=== PATIENT | female | born 1940 | race Caucasian/White ===

== ENCOUNTER 2025-02-12 09:50 | Day surgery (SDC) | payer MEDICARE, SELFPAY ==
[2025-02-12] VITALS (9 sets, daily range): BP systolic 153–176; BP diastolic 67–95; PULSE 73–93; RESP 16–17; TEMP 36.6–36.9; O2SAT 92–99; BMI 24.0
--- NOTE | 2025-02-12 10:16 | NM_ITS ---
EXAM: Nuclear medicine lymphoscintigraphy Lymphoseek left lower extremity examination. CLINICAL HISTORY: Immediate preoperative study. COMPARISON: None. TECHNIQUE: 500 uCi Lymphoseek was injected intradermally in the medial left leg. Imaging through 75 minutes of the left lower extremity was then performed. NM/LYMPH NODE IMAGING IMPRESSION: Lymphoscintigraphy of the left lower extremity following left leg medial inject ion Lymphoseek. At 75 minute images, 2 and possibly 3 lymph nodes are seen in the left groin re gion, the central one being the most intense. Reading Location: [place] [address]
[2025-02-12] MEDS: Lactated Ringers 1,000 ML 15 ML IV (10:30)
--- NOTE | 2025-02-12 10:58 | PCM.HP.STD ---
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 It is Breslow depth is 2.5 mm, ulceration was present (at least 4 mm), Nathan level IV, at least 2 mitoses per square millimeter, no lymphatic or vascular invasion identified, and was therefore classified as a T3b. The full-thickness biopsy was obtained by Jovan Briceño and was 18 x 12 x 5 mm deep in an attempt to remove the lesion completely. Peripheral margins were seen as positive for melanoma in situ (but negative for invasive melanoma) on the pathology specimen. Patient doing well overall today in clinic. She reports no new onset headaches. She does not think that she has any lumps or bumps in her groin or behind her knee. Patient reports that she has a challenging situation at home as her has severe dementia and she is the main caregiver. She has some friend support who can assist her during this time of need, however she is not interested in going to [facility], or [place] to see a melanoma specialist (I offered her this opportunity and she deferred). She would like to stay in [place] for her care. Of note patient has a history of 2 melanomas on the face and the leg which were excised 15 years ago. She did not require any chemotherapy after those wide local excisions. She has never had a sentinel lymph node biopsy. Patient is not a smoker. She does not have a personal or family history of bleeding or clotting problems. Current Encounter (DATE OF SURGERY H&P UPDATE): I saw and examined the patient this morning in pre-operative holding. We discussed risks and benefits of today's surgery and they would like to proceed. NO CHANGE in health history since last seen and evaluated. Ready to proceed with surgery. [facility] Medical History (Updated 02/10/25 @ 13:46 by Cheryl Aburto) Wears partial dentures History of hypothyroidism Thyroid disease Low iron Excessive bleeding Restless legs History of diverticulitis Heartburn Non-smoker Anxiety Skin cancer Murmur, cardiac Hypertension Cancer History of bleeding disorder Home Medications ?Medication ?Instructions ?Recorded ?Last Taken ?Type garlic 100 mg tablet (Odor Free 100 mg PO DAILY 02/17/17 02/11/25 History Garlic) hydrochlorothiazide 25 mg tablet 25 mg PO DAILY 02/17/17 02/11/25 History multivitamin (Daily Multiple 1 ea PO DAILY 02/17/17 02/11/25 History tablet) omega-3 fatty acids-fish oil 340 3 ea PO DAILY 02/17/17 02/11/25 History mg-1,000 mg capsule (Fish Oil) docusate sodium 100 mg capsule 100 mg PO BID PRN PRN Constipation 02/23/17 Unknown Rx (DOK) ##60 levothyroxine 75 mcg tablet 75 mcg PO QDAY 02/06/25 02/12/25 History losartan 25 mg tablet 25 mg PO QDAY 02/06/25 02/12/25 History acetaminophen 325 mg tablet 650 mg PO Q4H PRN pain (scale 02/12/25 Unknown History (Aminofen) score 4-6) oxycodone 5 mg tablet 5 mg PO BID PRN pain 5 days #10 02/12/25 Unknown Rx tabs Allergy/AdvReac Type Severity Reaction Status Date / Time No Known Allergies Allergy Verified 02/12/25 10:25 Family History Other Anxiety Bleeding disorder High cholesterol History of anesthesia problem Hypertension Melanoma Skin cancer Surgical History (Updated 02/10/25 @ 13:46 by Cheryl Aburto) History of bladder repair surgery History of bladder surgery H/O: hysterectomy Social History Smoking Status: Never smoker alcohol intake: never substance use type: does not use additional social history: pt denies vaping, denies edibles, denies aspirin and ibuprofen use, denies marijuana use. Has a history of bleeding disorder Vital Signs Vital Signs Vital Signs: 02/12/25 10:26 02/12/25 10:26 Temperature 97.8 F Temperature Source Temporal Pulse Rate 74 Respiratory Rate 17 Respiratory Pattern Normal Blood Pressure 176/95 H Blood Pressure Mean 122 Blood Pressure Source Monitor Blood Pressure Position Semi-Fowlers Blood Pressure Location Left Arm Pulse Ox 97 Oxygen Delivery Method Room Air Weight Weight: 123 lb 0.287 oz Body Mass Index (BMI) 24.0 Physical Exam Narrative Left medial leg scar that is 3 cm long. No apparent residual melanocytes seen along the scar line. No popliteal lymphadenopathy on my exam. No left inguinal lymphadenopathy on my exam. Assessment & Plan Assessment/Plan (1) Melanoma of lower leg: PLAN: Plan Patient with a thick melanoma. I spoke with Dr. Bunn from hematology/oncology. I am referring her to him for assessment for targeted immunotherapy/chemotherapy. We discussed her case and we are recommending a sentinel lymph node biopsy with wide local excision (2 cm margins). I offered the patient a referral to a melanoma specialist (surgical oncologist), but she declined at this time as she would like to have this performed at [facility] as this is the closest hospital to her family in [place]. I talked to the patient extensively about the risks and benefits of a sentinel lymph node biopsy. We talked about the risks of damage to surrounding structures including nerves, but also risks of lymphedema postoperatively (could develop severe lymphedema in the lower extremity despite this being a lymph node sampling procedure and not a full lymph node dissection). I talked her about the benefits of the biopsy which is to give the oncologist more information about the staging of her disease, which may help with regards to prescribing immunotherapy or chemotherapy. After our discussion she elected to proceed with sentinel lymph node biopsy. She would like to undergo wide local excision of the tumor as well as recommended (2 cm margins were discussed). She understands that a temporary dressing (cadaver skin) will be applied afterwards with the bolster until we have definitive final surgical margins. Subsequently we will perform a reconstruction (likely skin graft). I talked to the patient extensively about the risks of surgery, including bleeding, infection, lymphatic damage including lymphedema, damage to surrounding structures such as nerves (numbness postoperatively), poor scaring, surgical site dehiscence and wound formation, need for wound care, need for repeat operations, failure to obtain the desired result, DVT/PE, and the risks of anesthesia including , including stroke (from low blood pressure/ischemia or clot). The benefits and alternatives of this surgery were also discussed. All of their questions were answered, and they agreed to proceed with surgery. CPT codes for insurance prior authorization are as follows: 67422, [id number], [id number], [id number] INTERVAL H&P PLAN, DATE OF SURGERY: We will proceed with surgery today. I reiterated the above noted risks and plans. I marked the left leg melanoma and patient/family in agreement with the site marking. They elected to proceed.
--- NOTE | 2025-02-12 11:40 | PRE.ANES_ITS ---
ASA Classification* ASA Classification ASA Classification: 2 Assessment & Plan Anesthesia* Anesthesia Assessment Anesthesia Assessment: Discussed sedation and/or anesthesia options, risks, benefits, and alternatives with patient/parents/legal guardian/POA. Questions invited. The patient/parents/legal guardian/POA seems to understand and agrees to proceed with anesthesia plan. Reviewed the physical assessment, medical history, allergy history and patient home medications list prior to surgery/procedure/anesthetic and documented any changes. Performed airway and anesthesia risk assessments. Anesthesia Type Anesthesia Type: General Anesthesia Focused Assessment* Temperature: 97.8 F Pulse Rate: 74 Blood Pressure: 176/95 Respiratory Rate: 17 Pulse Ox: 97 Airway Assessment Mouth opens: >3 cm Mallampati Score: II Focused Labs Anesthesia Preop lab: CBC WBC 10.5 K/mm3 (4.4-11.0) 02/24/17 06:20 02/24/17 RBC 3.23 M/mm3 (4.2-5.4) L 02/24/17 06:20 02/24/17 Hgb 10.3 g/dl (12.0-15.0) L 02/24/17 06:20 7 Hct 30.7 % (37-47) L 02/24/17 06:20 02/24/17 Plt Count 197 K/mm3 (150-450) 02/24/17 06:20 02/24/17 CHEMISTRY Potassium 3.1 mmol/L (3.5-5.1) L 02/20/17 16:20 02/20/17 Sodium 136 mmol/L (136-145) 02/20/17 16:20 02/20/17 BUN 8 mg/dL (7-18) 02/20/17 16:20 02/20/17 Creatinine 0.75 mg/dL (0.55-1.02) 02/20/17 16:20 02/20/17 Glucose 104 mg/dL (70-110) 02/20/17 16:20 02/20/17 COAG PT 12.5 SECONDS (11.7-14.9) 02/20/17 16:20 Pre-Assessment Diagnosis/Proposed Procedure Planned Operative Procedure(s): WIDE LOCAL EXCISION OF MELANOMA, LEFT LEG, Anesthesia History 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 When Was Last Pacemaker Check QUESTION #4 FULL TEXT: You/Your Family Experience fever (hyperthermia) with Anesthesia Last Oral Intake Last Oral intake: Last Oral Intake NPO since 07:30 02/12/25 10:26 Meds taken in AM with sips of Yes 02/12/25 10:26 water? Meds patient instructed to take am of surgery PONV PONV - architectural modeler: PONV - architectural modeler Female Yes 02/10/25 13:35 HX of Motion Sickness No 02/10/25 13:35 HX of N/V After Surgery No 02/10/25 13:35 Non-Smoker Yes 02/10/25 13:35 Duration of Surgery greater Yes 02/10/25 13:35 than 60 minutes Number of Risk Factors 3 02/10/25 13:35 PONV Score Moderate Risk 02/10/25 13:35 Height & Weight Height & Weight: Anesthesia: Height & Weight Height 5 ft 02/12/25 10:26 Weight: 55.8 kg 02/12/25 10:26 Body Mass Index (BMI) 24.0 02/12/25 10:26 Respiratory Assessment Respiratory Assessment - architectural modeler: Respiratory Tract Infection Hx - architectural modeler Hx Respiratory Tract Infection No 02/10/25 13:35 STOP Sleep Apnea STOP Sleep Apnea - architectural modeler: STOP Sleep Apnea - architectural modeler Hx Hypertension Yes: UNCONTROLLED ESPECIALLY 02/10/25 13:[address] CLOUD Hx Sleep Apnea No 02/10/25 13:35 CPAP BIPAP Do you snore loudly (louder No 02/10/25 13:35 than talking or can be heard Do you often feel tired/ No 02/10/25 13:35 fatigued/ sleepy during daytime? Has anyone observed you stop No 02/10/25 13:35 breathing during sleep? STOP Results Negative 02/10/25 13:35 QUESTION #5 FULL TEXT : Do you snore loudly (louder than talking or can be heard through closed doors)? 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 Specify any problems Hx of Preganancy in last 3 N/A 02/10/25 13:35 Months Nurse Filling Out Transfusion NBUCHER 02/10/25 13:35 & Questions: Date: 02/10/25 02/10/25 13:35 Time: 13:39 02/10/25 13:35 Patient unable to answer at this time (ie. confused, unrespo /Reproduction History /Reproductive History - architectural modeler: /Reproductive Hx- architectural modeler Hx Now No 02/10/25 13:35 Gestational Age (in weeks): EDC: Hx Hx Para Hx Section SAB Active Medications Active Medications: Current Medications Generic Name Dose Route Start Last Admin Trade Name Freq PRN Reason Stop Dose Admin Lactated Ringer's 1,000 mls @ 15 mls/hr 02/12/25 10:15 02/12/25 10:30 IV 15 mls/hr .Q48H JAREN Administration PFSH Medical History Wears partial dentures History of hypothyroidism Thyroid disease Low iron Excessive bleeding Restless legs History of diverticulitis Heartburn Non-smoker Anxiety Skin cancer Murmur, cardiac Hypertension Cancer History of bleeding disorder Home Medications ?Medication ?Instructions ?Recorded ?Last Taken ?Type garlic 100 mg tablet (Odor Free 100 mg PO DAILY 02/11/25 History Garlic) hydrochlorothiazide 25 mg tablet 25 mg PO DAILY 02/11/25 History multivitamin (Daily Multiple 1 ea PO DAILY 02/17/17 History tablet) omega-3 fatty acids-fish oil 340 3 ea PO DAILY 7 02/11/25 History mg-1,000 mg capsule (Fish Oil) docusate sodium 100 mg capsule 100 mg PO BID PRN PRN C onstipation 02/23/17 Unknown Rx (DOK) ##60 levothyroxine 75 mcg tablet 75 mcg PO QDAY 02/06/25 History losartan 25 mg tablet 25 mg PO QDAY 02/06/2502/12 History acetaminophen 325 mg tablet 650 mg PO Q4H PRN pain (sc brittany 02/12/25 Unknown History (Aminofen) score 4-6) oxycodone 5 mg tablet 5 mg PO BID PRN pain 5 days #10 02/12/25 Unknown Rx tabs Allergy/AdvReac Type Severity Reaction Status Date / Time No Known Allergies Allergy Verified 02/12/25 10:25 Family History Other Anxiety Bleeding disorder High cholesterol History of anesthesia problem Hypertension Melanoma Skin cancer Surgical History History of bladder repair surgery History of bladder surgery H/O: hysterectomy Social History Smoking Status: Never smoker alcohol intake: never substance use type: does not use additional social history: pt denies vaping, denies edibles, denies aspirin and ibuprofen use, denies marijuana use. Has a history of bleeding disorder Review of Systems (Anesthesia) ROS Narrative System reviewed and no additional complaints, except as documented.
--- NOTE | 2025-02-12 14:00 | LYMN_PTH ---
PATIENT: TIERA CHING LOC: [facility] [place][id number] AGE/SX: 84/F ROOM: RE02/12/[address]: Dr. Raj Aguilar MD : 1940 BED: DIS: 02/12/2025 SPEC #: [id number] RECD: 02/12/25 17:54 STATUS: CARLA RERamy #: [id number] MT: 02/12/25 14:[address]: Raj Aguilar DEPT: SURGICAL PATHOLOGY RECD BY: Juliano Mathews ENTERED: 02/13/25 09:08 SP TYPE: LYMPH NODE OTHR DR: Dr. Raj Edwards MD Tissues: A - LYMPH NODE BIOPSY B - Skin of leg, NOS Procedures: Immunohistochemical Stains Surgery Specimen Level IV Surgery Specimen Level V IHC Stain ADDITIONAL HEADER OPERATION: Wide local excision left leg melanoma with sentinel lymph node PRE-OP DIAGNOSIS: Melanoma of lower leg TISSUE SUBMITTED: A- Left groin sentinel lymph node, B- Wide local excision melanoma left lower leg *short stitch- proximal, long stitch- posterior* MICROSCOPIC DIAGNOSIS A. Left groin, sentinel lymph node, biopsy: * Negative for metastasis (0/1). * IHC for melanoma cocktail (HMB45+Tyrosinase+[place]-1) was utilized in the assessment. B. Skin, left lower leg, melanoma, wide local excision: * Residual lentigo maligna, surgical margins free - see note and Comment. * Small benign intradermal nevus (incidental). * Scar and associated reactive changes consistent with a previous surgical procedure. * Note: IHC for Melan-A (B9, B10) supports the histologic impression. COMMENT A preliminary diagnosis was discussed with Dr Aguilar on 02/17/25. The margin status was reported to Dr Aguilar at 8:30 AM on 02/19/25. Selected slides/images were reviewed in intradepartmental consultation by Dr Ramila Smith (dermatopathology division, [facility]). MICROSCOPIC DESCRIPTION Slides are reviewed. All controls show appropriate reactivity (HMB-45, Tyrosinase, [place]-1 performed at [facility]). All immunohistochemistry, in situ hybridization, and histochemical tests were developed by and are performed at the [facility], [address] [place] [address], [address], [place] [address]. All Immunofluorescent (IF) ?tests were developed by and are performed at the [facility], [address] [place] [address], [place], [place] ?[address]. All tests reported here, except those addressing HER2 overexpression as a predictive marker, have not been cleared by or approved by the US Food and Drug Administration (FDA). The laboratory is regulated under CLIA as qualified to perform high-complexity testing. The tests are used for clinical purposes. They should not be regarded as investigational or for research All matched controls reacted appropriately (Melan-A performed at [facility]). These tests were developed and their performance characteristics determined by [facility]. They may not have been cleared or approved by the U.S. Food and Drug Administration. The FDA has determined that such clearance or approval is not necessary.? The above immunohistochemical/dualISH?markers are ordered and reviewed by the Pathologist. GROSS DESCRIPTION A. Received in formalin in a container labeled with the patient's name, date of , and left groin sentinel lymph node is a 1.2 x 1.0 x 0.5 cm fragment of johnson-yellow soft tissue. Multiple swathi are present on the outer surface. Serial sections reveal an ill-defined, 0.5 x 0.5 x 0.5 cm white-crook, indurated possible lymph node. The remaining cut surfaces are johnson-yellow to johnson-brown. The specimen is submitted entirely in A1. B. Received in formalin in a container labeled with the patient's name, date of , and wide local excision melanoma, left lower leg short stitch proximal long stitch posterior is an oriented and ovoid skin excision with a short stitch indicating proximal margin and long stitch indicating posterior margin. The long stitch is arbitrarily designated as 12:00, and the short stitch is arbitrarily designated as 3:00. The specimen is 5.7 cm from 3:00 to 9:00 (proximal to distal), 4.3 cm from 12:00 to 6:00 (posterior to anterior), with a depth ranging from 1.4 to 1.7 cm. The johnson epidermis is previously dyed blue and notable for a 2.5 cm in length by 0.8 cm in width white-crook scar. It is situated to the margins as follows:12:00/posterior margin: 1.5 cm3:00/proximal: 1.6 cm 6:00/anterior 1.7 cm9:00/distal: 1.5 cm Additionally, at approximately 5-6 o'clock, is a 0.6 x 0.3 x 0.2 cm crook-brown nodule situated 0.4 cm from the scar and 3.1 cm from 12:00, 2.5 cm from 3:00, 0.8 cm from 6:00, and 3.1 cm from 9:00. The remaining skin exhibits multiple brown speckles scattered throughout the specimen that come to within 0.3 cm of the closest margin. Ink arteaga:12-3 o'clock: Red3-6 o'clock: Green6-9 o'clock: Blue9-12 o'clock: Black The attending pathologist is consulted prior to grossing the specimen on 02/13/2025. The margins are shaved. For directional purposes only, the cut edge of the sections at the 12:00 aspect is inked yellow, and the cut edge of the 6:00 aspect is inked orange. The specimen is serially sectioned from 3:00 to 9:00 into 14 slices to reveal that the scar is situated within slices 4-11 with red-brown surfaces extending 0.5 cm deep, coming to within 0.3 cm of the deep margin. The nodule is within slices 5-7 and exhibits red-brown surfaces that appear confined to the epidermis. The remaining cut surfaces are johnson-yellow, lobulated, and rubbery. A section diagram is made. Account Installation Specialist sections:B1. 12-2 o'clock and 3-4 o'clock margins, en faceB2. 4-5 o'clock and 6-7 o'clock, en faceB3. 8-9 o'clock and 10-11 o'clock, en face B4. Slice 2 uninvolved between margin and scarB5. Slice 4 with scarB6. Slice 5 with scar and noduleB7. Slice 6 scar and nodule at deepest point of involvementB8. Slice 8, scar and nodule with deep involvementB9. Slice 8 with scarB10. Slices 9-10 with scar B11. Slice 11 with scarB12. Slice 12 and 13, unremarkable between scar and margin Per pathologist request on 02-17-2025, the remaining margins are submitted as follows:B 13-14. Remaining margins from 12-3 (perpendicular to margin)B15. Remaining margins from 3-6 (perpendicular to margin)B16. Remaining margins from 6-9 (perpendicular to margin)B17. Remaining margins from 9-12 (perpendicular to margin, and one section en face) [facility] 02-13-2025 CPT:[id number]
[2025-02-12] MEDS: Cefazolin 2 GM in 0.9% Normal Saline (100mL Bag) 100 ML IV (14:09)
[2025-02-12] MEDS: Isosulfan Blue 1% 5 ML Vial (14:24)
[2025-02-12] MEDS: Bupiv/Epi 0.25% 30 ML Vial (14:44)
[2025-02-12] MEDS: Lidocaine 1% /Epi 1:100 (20ml) 20 ML Vial (14:44)
--- NOTE | 2025-02-12 16:26 | PCM.POST.ANE ---
Anesthesia: Postop Eval I Current Vital Signs Temperature: 98.3 F Pulse Rate: 89 Blood Pressure: 154/70 Respiratory Rate: 16 Pulse Ox: 94 Oxygen Delivery Method: Room Air Assessment Airway patent: Yes Spontaneous unlabored respirations: Yes Mental status: Asleep (Arousable) nausea: No Vomiting: No Anesthesia Complication: No Fluid Hydration Crystalloid volume administer (ml): 1,300 Total IV fluid infused: 1,300 Progress Note Anesthesia document: Postop Eval 1 completed: Yes
--- NOTE | 2025-02-12 16:39 | OP.PCM_ITS ---
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, ulceration was present (at least 4 mm), Nathan level IV, at least 2 mitoses per square millimeter, no lymphatic or vascular invasion ) Post-Operative Diagnosis: Same Surgery/Procedure Performed: 1) [place] lymph node biopsy, left groin, for left leg melanoma (CPT: 70336) 2) Wide local excision, left anterior/medial leg melanoma (excision of scar from biopsy with 2 cm margins), 7.3 x 5 cm (CPT: 45081) 3) Placement of dermal substitute, left leg wound, 7.3 x 5 cm (TheraSkin cadaver Allograft), (CTP 49622, 26376) marketing community liaison: Yes Aquatic Scientist: Laura Izaguirre Tasks completed by blood and plasma laboratory assistant: Retracting Additional urgent care physician assistant?: Yes Additional Director Group Sales #2: Mary Means Tasks completed by urgent care physician assistant #2: Closing Type of Anesthesia: General/Supplemental (20 cc of 0.25% Marcaine with 1:200,000 epinephrine ) RN Documented Start/Stop Times: Operation Date: 02/12/25 14:00 Case Time Into Pre-Op 02/12/25 10:02 Anesthesia Start 02/12/25 14:09 Into Room 02/12/25 14:09 Out of Pre-Op 02/12/25 14:09 Procedure Start 02/12/25 14:44 Procedure End 02/12/25 16:11 Anesthesia End 02/12/25 16:23 Out of Room 02/12/25 16:23 Into Recovery 02/12/25 16:25 Procedure Start Time: 14:44 Procedure Stop Time: 16:11 Select all DRAINS/GRAFTS/IMPLANTS that apply: Tissue (TheraSkin ) Tissue details: Cadaver Allograft for temporary dressing Estimated Blood Loss: 10 cc Specimen collected: Yes Description of specimen(s) removed: Melanoma wide local excision (of previous scar from biopsy), short proximal and long posterior Description of surgery: Indications: Namita Linton is a delightful 84-year-old female with a 2.5 mm Breslow depth left anterior/medial leg melanoma that was excised for biopsy at an outpatient clinic. 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 There were no extra margins taken. She presents today for sentinel lymph node as well as wide local excision. Before the operation she went to nuclear medicine where Lymphoseek tracer was injected and the sentinel lymph node localized to the left groin. She presents today for sentinel lymph node as well as wide local excision with 2 cm margins around the scar from the previous melanoma excisional biopsy. She understands the risks, benefits, and alternatives of the procedure, including infection, bleeding, failure to obtain the desired result including the melanoma, fluid collections, damage to the lymphatic system with lymphedema, as well as need for repeat operations. She agreed to proceed with surgery. Procedure details: Patient was correctly identified in preoperative holding before going to nuclear medicine. The scar from the excisional biopsy was marked and the radioactive tracer was injected by the power generation technician and the lymphoscintigraphy performed. Pl ease see the separate dictation for this portion of the procedure. Once the mapping portion of the procedure was performed, she was taken back to the operating room where she was administered general anesthesia and she was prepped and draped in sterile fashion in the left lower extremity. Lymphazurin was injected (3 cc) intradermally into the 4 quadrants around the left medial/anterior leg melanoma excisional biopsy site. It was massaged for several minutes. The neoprobe was then used to examine the left popliteal fossa, which did not demonstrate any activity (consistent with preoperative lymphoscintigraphy). Attention was then turned to the left groin, where the neoprobe demonstrated significant amounts of activity within the femoral triangle. A curvilinear incision was therefore made over top of the femoral triangle in the area of highest activity with the probe. Dissection was carefully taken through the subcutaneous tissue and fascia to the level of the underlying sentinel lymph node with care taken to preserve cutaneous nerves. The sentinel lymph node was identified with both the neoprobe via the Lymphoseek tracer antibodies (was reading 400), as well as confirmation with blue dye from the Lymphazurin entering the sentinel lymph node tissue. Careful dissection was then taken around the sentinel lymph node and it was removed in 2 pieces (2 separate nodes) with care taken to clip the ends of the lymphatics with vascular clips. Off of the patient on the back table, the reading of the sentinel lymph node tissue was again 400. There was limited activity in the residual lymph node bed in the left femoral triangle (highest reading at this point was 12). No other blue nodes were seen. The wound was washed out with copious amounts normal saline. Hemostasis was obtained with Bovie electrocautery. There were no clinically positive nodes in this area, and no visual signs of melanoma spread. Tisseel was then placed to help eliminate some of the space and the deep fascia was closed with 3-0 Vicry interrupted sutures followed by 3-0 Vicryl deep dermal suturesl and a 3-0 Monocryl running subcuticular suture and Prineo tape. Attention was then turned to the leg where a 15 blade scalpel was used to excise around the excisional biopsy melanoma scar with 2 cm margins circumferentially for an entire wide local excision of 7.3 x 5 cm. The specimen was oriented with a short stitch proximal and a long stitch posterior. The excision was taken to the level of the underlying fascia for a full-thickness excision including all of the subcutaneous tissue. Hemostasis was obtained with Bovie electrocautery. The specimen was then sent to pathology for permanent section. Attention was then turned to placement of a dermal substitute for temporary dressing while awaiting permanent margins. A 2 x 3 inch piece of cadaver allograft (TheraSkin) was applied over the wound bed and trimmed to fit the 7.3 x 5 cm wound. It was sutured into place with a bolster dressing using 3-0 Vicryl sutures around the edges that were left long and tied over a Xeroform and moist gauze bolster. ABD and tape were applied on top. Patient tolerated the procedure well. She was awakened and taken to the PACU in stable condition. Postoperative plan: Will await for permanent pathology before definitive reconstruction with a skin graft of the left leg defect. Bolster will stay in place until the next stage of reconstruction. Patient has an appointment with Dr. Hakeem Bunn (medical oncology) for her melanoma treatment. Surgical Findings: * No obvious signs of spread of disease in the left groin. No clinically positive lymph nodes or abnormal lymphadenopathy in the left groin. * Left groin sentinel lymph node confirmed with Lymphazurin, Lymphoseek, and was also consistent with lymphoscintigraphy. Complications Complications: No Admit VTE Documentation VTE Mechan Device Prophylaxis: SCD's
--- NOTE | 2025-02-12 17:54 | PCM.POSTANE2 ---
Anesthesia Postop Eval I Sum Postop Eval Completion status Anesthesia document: Postop Eval 1 completed: Yes Anesthesia Postop Eval I Summary Anesthesia Postop Eval I Summary: Anesthesia Postop Eval I: Assessment Summary Airway patent Yes 02/12/25 16:28 Spontaneous unlabored Yes 02/12/25 16:28 respirations Mental status Asleep - Arousable 02/12/25 16:28 nausea No 02/12/25 16:28 Vomiting No 02/12/25 16:28 Anesthesia Postop Eval I: Fluid Summary Crystalloid volume administer 1,300 02/12/25 16:28 (ml) Colloids volume administered ( ml) Blood Product volume administered (ml) Total IV fluid infused 1,300 02/12/25 16:28 Anesthesia Postop Eval I: Summary Notes Anesthesia Complication No 02/12/25 16:28 Anesthesia Complication Comment: Post-operative progress note Anesthesia: Postop Eval II Evaluation Mental status: Awake and Calm Pain Level: 1 nausea: No Vomiting: No Complications Anesthesia Complication: No
== END 2025-02-12 17:56 | disposition home or self-care (01) ==
LOC: SDC 10:00 → AC 10:01
PROVIDERS: PCP Family Medicine; Referring Provider Surgery Plastic and Reconstructive Surgery; Visit Provider Surgery Plastic and Reconstructive Surgery
PROC: (CPT 11606; principal; 2025-02-12 13:50)
DX: D03.72 Melanoma in situ of left lower limb, including hip (principal); I10 Essential (primary) hypertension; E07.9 Disorder of thyroid, unspecified; E78.00 Pure hypercholesterolemia, unspecified; Z79.890 Hormone replacement therapy; Z79.899 Other long term (current) drug therapy; Z80.8 Family history of malignant neoplasm of other organs or systems; Z85.820 Personal history of malignant melanoma of skin
CPT/HCPCS: 11606; 15271; 15272; 38531; 38900; 00400; 78195; 88305; 88307; 88341; 88342; A4648; A9520; Q4121; J2405; Q9968

== ENCOUNTER 2025-02-19 07:21 | Day surgery (SDC) | payer MEDICARE, SELFPAY ==
[2025-02-19] VITALS (9 sets, daily range): BP systolic 91–186; BP diastolic 42–73; PULSE 60–71; RESP 12–20; TEMP 36.4–36.8; O2SAT 97–100; BMI 24.0
--- NOTE | 2025-02-19 07:39 | PCM.PRE.AN2 ---
ASA Classification* ASA Classification ASA Classification: 2 Assessment & Plan Anesthesia* Anesthesia Assessment Anesthesia Assessment: Discussed sedation and/or anesthesia options, risks, benefits, and alternatives with patient/parents/legal guardian/POA. Questions invited. The patient/parents/legal guardian/POA seems to understand and agrees to proceed with anesthesia plan. Reviewed the physical assessment, medical history, allergy history and patient home medications list prior to surgery/procedure/anesthetic and documented any changes. Performed airway and anesthesia risk assessments. Anesthesia Type Anesthesia Type: MAC Anesthesia Focused Assessment* Airway Assessment Mouth opens: >3 cm Mallampati Score: II Focused Labs Anesthesia Preop lab: CBC WBC 10.5 K/mm3 (4.4-11.0) 02/24/17 06:20 02/24/17 RBC 3.23 M/mm3 (4.2-5.4) L 02/24/17 06:20 02/24/17 Hgb 10.3 g/dl (12.0-15.0) L 02/24/17 06:20 02/24/17 Hct 30.7 % (37-47) L 02/24/17 06:20 02/24/17 Plt Count 197 K/mm3 (150-450) 02/24/17 06:20 02/24/17 CHEMISTRY Potassium 3.1 mmol/L (3.5-5.1) L 02/20/17 16:20 02/20/17 Sodium 136 mmol/L (136-145) 02/20/17 16:20 02/20/17 BUN 8 mg/dL (7-18) 02/20/17 16:20 02/20/17 Creatinine 0.75 mg/dL (0.55-1.02) 02/20/17 16:20 02/20/17 Glucose 104 mg/dL (70-110) 02/20/17 16:20 02/20/17 COAG PT 12.5 SECONDS (11.7-14.9) 02/20/17 16:20 02/20/17 Pre-Assessment Diagnosis/Proposed Procedure Planned Operative Procedure(s): (L) Left Lower Extremity Skin Graft Placement Anesthesia History 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 When Was Last Pacemaker Check QUESTION #4 FULL TEXT: You/Your Family Experience fever (hyperthermia) with Anesthesia Last Oral Intake Last Oral intake: Last Oral Intake NPO since Meds taken in AM with sips of water? Meds patient instructed to take am of surgery PONV PONV - wire threader: PONV - wire threader Female Yes 02/17/25 15:15 HX of Motion Sickness No 02/17/25 15:15 HX of N/V After Surgery No 02/17/25 15:15 Non-Smoker Yes 02/17/25 15:15 Duration of Surgery greater Yes 02/17/25 15:15 than 60 minutes Number of Risk Factors 3 02/17/25 15:15 PONV Score Moderate Risk 02/17/25 15:15 Height & Weight Height & Weight: Anesthesia: Height & Weight Height 5 ft 02/12/25 10:26 Respiratory Assessment Respiratory Assessment - wire threader: Respiratory Tract Infection Hx - wire threader Hx Respiratory Tract Infection No 02/17/25 15:15 STOP Sleep Apnea STOP Sleep Apnea - wire threader: STOP Sleep Apnea - wire threader Hx Hypertension Yes: UNCONTROLLED ESPECIALLY 02/17/25 15:[address] LCOUD Hx Sleep Apnea No 02/17/25 15:15 CPAP BIPAP Do you snore loudly (louder No 02/17/25 15:15 than talking or can be heard Do you often feel tired/ No 02/17/25 15:15 fatigued/ sleepy during daytime? Has anyone observed you stop No 02/17/25 15:15 breathing during sleep? STOP Results Negative 02/17/25 15:15 QUESTION #5 FULL TEXT : Do you snore loudly (louder than talking or can be heard through closed doors)? 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 Specify any problems Hx of Preganancy in last 3 No 02/17/25 15:15 Months Nurse Filling Out Transfusion VCHRISTIN 02/17/25 15:15 & Questions: Date: 02/17/25 02/17/25 15:15 Time: 15:16 02/17/25 15:15 Patient unable to answer at this time (ie. confused, unrespo /Reproduction History /Reproductive History - wire threader: /Reproductive Hx- wire threader Hx Now No 02/17/25 15:15 Gestational Age (in weeks): EDC: Hx Hx Para Hx Section SAB No 02/17/25 15:15 Active Medications Active Medications: Current Medications Generic Name Dose Route Start Last Admin Trade Name Freq PRN Reason Stop Dose Admin Cefazolin Sodium 2 gm/ Sodium 110 mls @ 150 mls/hr 02/19/25 08:55 Chloride IV 02/19/25 09:38 INTRAOP ONE Lactated Ringer's 1,000 mls @ 15 mls/hr 02/19/25 07:45 IV .Q48H JAREN PFSH Medical History Wears partial dentures History of hypothyroidism Thyroid disease Low iron Excessive bleeding Restless legs History of diverticulitis Heartburn Non-smoker Anxiety Skin cancer Murmur, cardiac Hypertension Cancer History of bleeding disorder Home Medications ?Medication ?Instructions ?Recorded ?Last Taken ?Type garlic 100 mg tablet (Odor Free 100 mg PO DAILY 02/17/17 02/11/25 History Garlic) hydrochlorothiazide 25 mg tablet 25 mg PO DAILY 02/17/17 02/11/25 History multivitamin (Daily Multiple 1 ea PO DAILY 02/17/17 02/11/25 History tablet) omega-3 fatty acids-fish oil 340 3 ea PO DAILY 02/17/17 02/11/25 History mg-1,000 mg capsule (Fish Oil) docusate sodium 100 mg capsule 100 mg PO BID PRN PRN Constipation 02/23/17 Unknown Rx (DOK) ##60 levothyroxine 75 mcg tablet 75 mcg PO QODAY 02/06/25 02/12/25 History losartan 25 mg tablet 25 mg PO QDAY 02/06/25 02/12/25 History acetaminophen 325 mg tablet 650 mg PO Q4H PRN pain (scale 02/12/25 Unknown History (Aminofen) score 4-6) oxycodone 5 mg tablet 5 mg PO BID PRN pain 5 days #10 02/12/25 Unknown Rx tabs acetaminophen 500 mg capsule 1,000 mg PO Q6H pain 02/17/25 Unknown History levothyroxine 37.5 mcg capsule 37.5 mcg PO QODAY 02/17/25 Unknown History Allergy/AdvReac Type Severity Reaction Status Date / Time No Known Allergies Allergy Verified 02/17/25 15:09 Family History Other Anxiety Bleeding disorder High cholesterol History of anesthesia problem Hypertension Melanoma Skin cancer Surgical History Hx of surgical procedure History of bladder repair surgery History of bladder surgery H/O: hysterectomy Social History Smoking Status: Never smoker alcohol intake: never substance use type: does not use additional social history: pt denies vaping, denies edibles, denies aspirin and ibuprofen use, denies marijuana use. Has a history of bleeding disorder Review of Systems (Anesthesia) ROS Narrative System reviewed and no additional complaints, except as documented.
--- NOTE | 2025-02-19 07:42 | PCM.HP.STD ---
HPI - General HPI Narrative TIERA CHING is a 84 F who presents with left medial leg wound in the setting of recent melanoma wide local excision. Final pathologic surgical margins clear of residual melanoma in situ and melanoma. Presents today for skin graft. Current Encounter (DATE OF SURGERY H&P UPDATE): I saw and examined the patient this morning in pre-operative holding. We discussed risks and benefits of today's surgery and they would like to proceed. NO CHANGE in health history since last seen and evaluated. Ready to proceed with surgery. [facility] Medical History Wears partial dentures History of hypothyroidism Thyroid disease Low iron Excessive bleeding Restless legs History of diverticulitis Heartburn Non-smoker Anxiety Skin cancer Murmur, cardiac Hypertension Cancer History of bleeding disorder Home Medications ?Medication ?Instructions ?Recorded ?Last Taken ?Type garlic 100 mg tablet (Odor Free 100 mg PO DAILY 02/17/17 02/11/25 History Garlic) hydrochlorothiazide 25 mg tablet 25 mg PO DAILY 02/17/17 02/11/25 History multivitamin (Daily Multiple 1 ea PO DAILY 02/17/17 02/11/25 History tablet) omega-3 fatty acids-fish oil 340 3 ea PO DAILY 02/17/17 02/18/25 History mg-1,000 mg capsule (Fish Oil) docusate sodium 100 mg capsule 100 mg PO BID PRN PRN Constipation 02/23/17 Unknown Rx (DOK) ##60 levothyroxine 75 mcg tablet 75 mcg PO QODAY 02/06/25 02/19/25 05:00 History losartan 25 mg tablet 25 mg PO QDAY 02/06/25 02/19/25 05:00 History acetaminophen 325 mg tablet 650 mg PO Q4H PRN pain (scale 02/12/25 Unknown History (Aminofen) score 4-6) oxycodone 5 mg tablet 5 mg PO BID PRN pain 5 days #10 02/12/25 Unknown Rx tabs acetaminophen 500 mg capsule 1,000 mg PO Q6H pain 02/17/25 Unknown History levothyroxine 37.5 mcg capsule 37.5 mcg PO QODAY 02/17/25 Unknown History Allergy/AdvReac Type Severity Reaction Status Date / Time No Known Allergies Allergy Verified 02/19/25 07:54 Family History Other Anxiety Bleeding disorder High cholesterol History of anesthesia problem Hypertension Melanoma Skin cancer Surgical History Hx of surgical procedure History of bladder repair surgery History of bladder surgery H/O: hysterectomy Social History Smoking Status: Never smoker alcohol intake: never substance use type: does not use additional social history: pt denies vaping, denies edibles, denies aspirin and ibuprofen use, denies marijuana use. Has a history of bleeding disorder Physical Exam Narrative LLE with bolster in place. No signs of infection . Assessment & Plan Assessment/Plan (1) Melanoma of lower leg: PLAN: I talked to the patient extensively about the risks of surgery, including bleeding, skin graft failure, infection, damage to surrounding structures, poor scaring, surgical site dehiscence and wound formation, need for wound care, need for repeat operations, failure to obtain the desired result, DVT/PE, and the risks of anesthesia including , including stroke (from low blood pressure/ischemia or clot). The benefits and alternatives of this surgery were also discussed. All of their questions were answered, and they agreed to proceed with surgery. INTERVAL H&P PLAN, DATE OF SURGERY: We will proceed with surgery today.
[2025-02-19] MEDS: Lactated Ringers 1,000 ML 15 ML IV (08:09)
--- NOTE | 2025-02-19 08:48 | OP.PCM_ITS ---
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, ulceration was present (at least 4 mm), Nathan level IV, at least 2 mitoses per square millimeter, no lymphatic or vascular invasion ) Post-Operative Diagnosis: Same Surgery/Procedure Performed: 1) Surgical preparation of wound, 7.3 x 5 cm (CPT: 55073) 2) Split-thickness skin graft, left thigh to left leg, 7.3 x 5 cm (CPT: 85104) poultry feed supervisor: Yes Maintenance Technician 2Nd Shift: Yany Kelley Tasks completed by administrative assistant: Harvesting grafts and Other (Dressings) Type of Anesthesia: MAC/Supplemental (30 cc of a 50-50 mixture of 1% lidocaine with 1-200,000 epinephrine and quarter percent Marcaine with 1-200,000 epinephrine) RN Documented Start/Stop Times: Operation Date: 02/19/25 08:55 Case Time Into Pre-Op 02/19/25 07:32 Out of Pre-Op 02/19/25 08:49 Anesthesia Start 02/19/25 08:56 Into Room 02/19/25 08:56 Procedure Start 02/19/25 09:28 Procedure End 02/19/25 09:59 Anesthesia End 02/19/25 10:08 Into Recovery 02/19/25 10:08 Out of Room 02/19/25 10:08 Into Phase II Recovery 02/19/25 11:25 Out of Recovery 02/19/25 11:25 Out of Phase II 02/19/25 12:05 Procedure Start Time: 09:28 Procedure Stop Time: 09:59 Select all DRAINS/GRAFTS/IMPLANTS that apply: None Estimated Blood Loss: 20 cc Specimen collected: No Description of surgery: Indications: Patient is a delightful 84-year-old female with a left medial leg wound with clear surgical margins following wide local excision (2 cm margins) for a melanoma with a Breslow depth of 2.5. Patient understands the risks, benefits, and alternatives to skin grafting, and wants to proceed. Procedure details: Patient was correct identified in preoperative holding and marked. She is taken back to the operating room where she was administered sedation and local anesthesia as noted above. It was given time to take effect. A timeout was performed. He was prepped and draped in sterile fashion. The allograft was removed and the wound bed was determined to be healthy for skin grafting. It was further prepared (removing hypertrophic granulation tissue and any biofilm) with a curette for sharp excision. Hemostasis was obtained with Bovie electrocautery and epinephrine soaked Telfa. This was a total surgical preparation of 7.3 x 5 cm. Using the Jordyn dermatome a skin graft was taken at 12/1000th inch from the left thigh and trimmed to fit for a total skin graft of 7.3 x 5 cm for the wound bed. Hemostasis was obtained with an epinephrine soaked Telfa. Mepilex Ag, and ABD, and Ioban were applied to the left thigh. The skin graft was sutured with 3-0 Vicryl pop-off's into the wound bed after it was meshed 1.5-1, and a bolster was tied over the skin graft with the Vicryl sutures. ABD and tape were applied. Patient tolerated the procedure well. She was awakened and taken to the PACU in stable condition. Postoperative plan: Follow-up on , 27 Feb 2025, for bolster removal. Dressing stay in place until then. Surgical Findings: Healthy wound bed following surgical preparation ready for skin grafting Complications Complications: No Admit VTE Documentation VTE Mechan Device Prophylaxis: SCD's
[2025-02-19] MEDS: Cefazolin 2 GM in 0.9% Normal Saline (100mL Bag) 100 ML IV (09:30)
[2025-02-19] MEDS: Mineral Oil, Light Sterile 10 ML Vial MC (09:43)
[2025-02-19] MEDS: Bupiv/Epi 0.25% 30 ML Vial (09:44)
[2025-02-19] MEDS: Epinephrine (1 mg/ml) 1 MG/ML VIAL (09:44)
[2025-02-19] MEDS: Lidocaine 1% /Epi 1:100 (20ml) 20 ML Vial (09:45)
--- NOTE | 2025-02-19 10:19 | PCM.POST.ANE ---
Anesthesia: Postop Eval I Current Vital Signs Temperature: 98.1 F Pulse Rate: 61 Blood Pressure: 91/42 Respiratory Rate: 20 Pulse Ox: 98 Oxygen Delivery Method: Room Air Assessment Airway patent: Yes Spontaneous unlabored respirations: Yes Mental status: Awake and Calm nausea: No Vomiting: No Anesthesia Complication: No Fluid Hydration Crystalloid volume administer (ml): 900 Total IV fluid infused: 900 Progress Note Anesthesia document: Postop Eval 1 completed: Yes
--- NOTE | 2025-02-19 11:37 | POSTOPAN2_ITS ---
Anesthesia Postop Eval I Sum Postop Eval Completion status Anesthesia document: Postop Eval 1 completed: Yes Anesthesia Postop Eval I Summary Anesthesia Postop Eval I Summary: Anesthesia Postop Eval I: Assessment Summary Airway patent Yes 02/19/25 10:20 LANGUAGES AND LITERATURE INSTRUCTOR.[email or web address] Spontaneous unlabored Yes 02/19/25 10:20 LANGUAGES AND LITERATURE INSTRUCTOR.[email or web address] respirations Mental status Awake,Calm 02/19/25 10:20 LANGUAGES AND LITERATURE INSTRUCTOR.[email or web address] nausea No 02/19/25 10:20 LANGUAGES AND LITERATURE INSTRUCTOR.[email or web address] Vomiting No 02/19/25 10:20 LANGUAGES AND LITERATURE INSTRUCTOR.[email or web address] Anesthesia Postop Eval I: Fluid Summary Crystalloid volume administer 900 02/19/25 10:20 LANGUAGES AND LITERATURE INSTRUCTOR.PKEL (ml) Colloids volume administered ( ml) Blood Product volume administered (ml) Total IV fluid infused 900 02/19/25 10:20 LANGUAGES AND LITERATURE INSTRUCTOR.PKEL Anesthesia Postop Eval I: Summary Notes Anesthesia Complication No 02/19/25 10:20 LANGUAGES AND LITERATURE INSTRUCTOR.PKEL Anesthesia Complication Comment: Post-operative progress note Anesthesia: Postop Eval II Evaluation Mental status: Awake Pain Level: 0 nausea: No Vomiting: No
--- NOTE | 2025-02-19 11:37 | PCM.POSTANE2 ---
Anesthesia Postop Eval I Sum Postop Eval Completion status Anesthesia document: Postop Eval 1 completed: Yes Anesthesia Postop Eval I Summary Anesthesia Postop Eval I Summary: Anesthesia Postop Eval I: Assessment Summary Airway patent Yes 02/19/25 10:20 [employer] MARK[employer] [email or web address] Spontaneous unlabored Yes 02/19/25 10:20 [employer] MARKET ECONOMIST.[email or web address] respirations Mental status Awake,Calm 02/19/25 10:20 [employer] MARKET ECONOMIST.[email or web address] nausea No 02/19/25 10:20 [employer] MARKET ECONOMIST.[email or web address] Vomiting No 02/19/25 10:20 LABOUR MARKET ECONOMIST.[email or web address] Anesthesia Postop Eval I: Fluid Summary Crystalloid volume administer 900 02/19/25 10:20 [employer] MARKET ECONOMIST.[email or web address] (ml) Colloids volume administered ( ml) Blood Product volume administered (ml) Total IV fluid infused 900 02/19/25 10:20 [employer]OUR MARKET ECONOMIST.[email or web address] Anesthesia Postop Eval I: Summary Notes Anesthesia Complication No 02/19/25 10:20 LABOUR MARKET ECONOMIST.[email or web address] Anesthesia Complication Comment: Post-operative progress note Anesthesia: Postop Eval II Evaluation Mental status: Awake Pain Level: 0 nausea: No Vomiting: No
== END 2025-02-19 12:05 | disposition home or self-care (01) ==
LOC: SDC 07:23 → AC 07:24
PROVIDERS: PCP Family Medicine; Referring Provider Surgery Plastic and Reconstructive Surgery; Visit Provider Surgery Plastic and Reconstructive Surgery
PROC: (CPT 15100; principal; 2025-02-19 08:40)
DX: T81.89XA Other complications of procedures, not elsewhere classified, initial encounter (principal); Y83.8 Other surgical procedures as the cause of abnormal reaction of the patient, or of later complication, without mention of misadventure at the time of the procedure; I10 Essential (primary) hypertension; E07.9 Disorder of thyroid, unspecified; Z79.890 Hormone replacement therapy; Z79.899 Other long term (current) drug therapy; Z86.006 Personal history of melanoma in-situ; Z85.820 Personal history of malignant melanoma of skin; Z80.8 Family history of malignant neoplasm of other organs or systems
CPT/HCPCS: 15100; 15002; 00400; J2405

== ENCOUNTER 2025-02-27 13:15 | Outpatient (RCR) | payer MEDICARE, SELFPAY ==
[2025-02-17 10:21] VITALS: BP 213/80; PULSE 73; RESP 16; TEMP 36.2; BMI 24.0
--- NOTE | 2025-02-17 12:37 | PCM.PN.SRG ---
Subjective Subjective Doing well postop. No fevers chills or drainage. No pain from the operative sites. To discuss second stage skin grafting in the event that we have negative pathology and do not need further resection. Objective Data Objective Data Vital Signs: Vital Signs Temp Pulse Resp BP O2 Del Method 97.1 F L 73 16 213/80 H Room Air 02/17/25 10:21 02/17/25 10:21 02/17/25 10:21 02/17/25 10:02/17/25 10:21 Oxygen Delivery Method Room Air Weight: 123 lb Body Mass Index (BMI) 24.0 Physical Exam Narrative Left groin examined Incision clean dry and intact without any signs of fluid collection. No signs of infection Left leg with bolster in place, no signs of infection surrounding the bolster Assessment & Plan Assessment/Plan (1) Melanoma of lower leg: PLAN: Patient reluctant to undergo skin grafting, however I talked to her extensively today with her daughter present about the procedure. We talked about the risks, benefits, and alternatives, the risk being mainly skin graft failure and bleeding, and the alternatives being wound care with either dermal substitutes or prolonged dressing changes. I talked her about the benefits of skin grafting which is healing the wound quicker. After our discussion, she and her daughter elected for skin grafting procedure. Plan for split-thickness skin graft on Monday, 19 Feb 2025, if final margins are negative on pathology. I called the pathologist and we should likely have final pathology tomorrow Plan to leave the bolster on until then Charges/Coding Procedures Integumentary [id number]: [id number] Global Visit
--- NOTE | 2025-02-18 12:58 | WC ---
L MED LEG 02/17/25
[2025-02-27 13:10] VITALS: BP 227/85; PULSE 73; RESP 16; TEMP 35.8; BMI 24.0
--- NOTE | 2025-02-27 14:14 | PCM.WC.PN ---
History of Present Illness Date of Service: 02/27/25 Subjective Subjective Doing well postop. No fevers chills or drainage. No pain from the operative sites. Has kept bolster in place. Objective Data Objective Data Vital Signs: Vital Signs Temp Pulse Resp BP O2 Del Method 96.4 F L 73 16 227/85 H Room Air 02/27/25 13:10 02/27/25 13:10 02/27/25 13:10 02/27/25 13:10 02/17/25 10:21 Oxygen Delivery Method Room Air Weight: 123 lb Body Mass Index (BMI) 24.0 Charges/Coding Procedures Integumentary 111xxx-113xx: 78054 Global Visit Physical Exam Narrative LLE with bolster removed 100% take of the STSG No signs of infection Left groin incision c/d/i, no fluid collections. Prineo removed Left thigh donor site healthy. Debridement Note Debridement Note No debridement was completed: No debridement was completed today Post-Debridement Measurements and Additional Note: Post-Debridement Measurements/Treatment - Nurse 1 - General Ulcer Assessment Start: 02/17/25 10:20 Freq: Status: Active Protocol: [email or web address] Activity Type Activity Date Activity User E-sign Co-sign Detail Recorded Client Recorded Date Recorded By Document 02/17/25 10:21 [id number] 02/17/25 10:23 Document 02/27/25 13:10 [id number] 02/27/25 13:17 02/17/25 02/27/25 10:21 13:10 - Today's Visit Information Type of service Initial Visit Follow-up Visit (Physician/CHARGEBACK SPECIALIST ) Arrival Mode Ambulatory, Ambulatory Walker Accompanied by DAUGHTER Patient Identification Verified (Name & Yes Yes ) Patient Requires Transmission-Based No No Precautions Height and Weight Height 5 ft Weight 123 lb Weight in Pounds 123.0 lbs Weight Measurement Method Stated by Patient Body Mass Index (BMI) 24.0 24.0 BMI Classification Normal Normal Vital Signs Temperature (97.8 F-99.1 F) 97.1 F L 96.4 F L Temperature Source Temporal Temporal Pulse Rate (60-100) 73 73 Pulse Location Monitor Monitor Respiratory Rate (12-18) 16 16 Respiratory rate source Observation Observation Oxygen Delivery Method Room Air Blood Pressure (90/60-120/80) 213/80 H 227/85 H Blood Pressure Mean (mm Hg) 124 132 Source Monitor Monitor Position Sitting Sitting Blood Pressure Location Left Arm Right Arm History Since Last Visit- (Skip if this is Patient's initial visit) Have you changed medications since your No last visit? Any new allergies or adverse reactions No Had a fall/change in ADL's that may No increase risk of falls Signs or symptoms of abuse and/or No neglect since last visit Have you been in the hospital since your Yes last visit? Has dressing in place as prescribed Yes Has compression in place as prescribed Yes Has offloadiing in place as prescribed N/A Experienced any changes in pain level or No management Left Footwear Regular Shoe Regular Shoe Right Footwear Regular Shoe Regular Shoe Pain Scale: 0-10 Numeric Is Patient Pain Free? Yes No WC - Nurse 1 - General Ulcer Measurement Start: 02/17/25 10:20 Freq: Status: Active Protocol: Activity Type Activity Date Activity User E-sign Co-sign Detail Recorded Client Recorded Date Recorded By Document 02/17/25 10:27 [id number] 02/17/25 10:33 Document 02/27/25 13:10 [id number] 02/27/25 13:17 02/17/25 02/27/25 10:27 13:10 Wound Center Nurse 1 Left Medial Leg, PostOP -Combined with other wound No No -Current Size (cm) - Length 0.1 0.1 -Current Size (cm) - Width 0.1 0.1 -Current Size (cm) - Depth 0.1 0.1 -Total Square Cm 0.01 0.01 -Date of Last Picture (Recall this 02/17/25 field) -Photo Taken Yes No -Undermining/Tunneling No -Circular Undermining No -Exudate Amt Medium -Exudate Type Serosanguineous -Wound Margin Distinct, Outline Attached -Wound Comment(s) sutures intact Lower Limb Edema Present Yes Yes Left Calf (cm) 35 34.7 Left Ankle (cm) 22 22.2 WC - Nurse 2 - General Ulcer CM Notes Start: 02/17/25 10:20 Freq: Status: Active Protocol: Activity Type Activity Date Activity User E-sign Co-sign Detail Recorded Client Recorded Date Recorded By Document 02/17/25 11:10 [facility] [id number] 02/17/25 11:19 [facility] Document 02/27/25 13:23 DS [id number] 02/27/25 13:30 DS Edit Result 02/27/25 13:23 DS (1) [id number] 02/27/25 13:31 DS Edit Result 02/27/25 13:23 DS (2) [id number] 02/27/25 14:12 DS (1) Left Medial Leg, PostOP - Wound Comment(s) packing removed => packing removed, sutures removed. (2) Left Medial Leg, PostOP - Correct Procedure Yes => 02/17/25 02/27/25 11:10 13:23 Wound Center Nurse 2 #2 Left Thigh - skin graft site -Time 13:23 -Correct Patient Yes -Correct Side, Site, Position Yes -Procedure Performed No -Wound/Ulcer Outcome Not Healed Left Medial Leg, PostOP -Time 11:15 13:23 -Correct Patient Yes -Correct Side, Site, Position Yes -Procedure Performed No No -Wound/Ulcer Outcome Not Healed Not Healed -Bleeding Controlled with NA -Wound Comment(s) discussed @ packing removed length next , sutures steps in removed. healing- surgical option vs wound care Pain Scale: 0-10 Numeric Is Patient Pain Free? Yes Yes WC - Nurse 3 - General Ulcer D/C NN Start: 02/17/25 10:20 Freq: Status: Active Protocol: Activity Type Activity Date Activity User E-sign Co-sign Detail Recorded Client Recorded Date Recorded By Document 02/17/25 11:28 DL [id number] 02/17/25 11:29 DL Document 02/27/25 13:54 [id number] 02/27/25 13:55 02/17/25 02/27/25 11:28 13:54 Wound Care Center Nurse 3 #2 Left Thigh - skin graft site -Ulcer Cleansing Rinsed/ Irrigated with Saline -Foul Odor after Cleansing No -Primary Dressing Applied NonAdherent Contact Layer -Primary Dressing Covered/Secured with Dry Gauze & Roll Gauze, Secured with Tape Left Medial Leg, PostOP -Ulcer Cleansing Rinsed/ Irrigated with Saline -Foul Odor after Cleansing No -Primary Dressing Applied NonAdherent Contact Layer -Other Dressing ABD -Primary Dressing Covered/Secured with Dry Gauze & Dry Gauze & Roll Gauze, Roll Gauze, Secured with Secured with Tape Tape Treatment Response Procedure Tolerated Well Pain Scale: 0-10 Numeric Is Patient Pain Free? Yes Yes WC - Visit Discharge Discharge Condition Stable Stable Ambulatory Status Ambulatory Ambulatory Transportation Private Auto Private Auto Accompanied by family daughter Medication Reconcilliation completed & Yes provided to patient/care provider Clinical Summary of Care Provided Yes Notes: Pt scheduled for surgery later this week . 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 Discussed skin graft care (fragile) and patient and daughter endorsed an understanding. F/u in 2 weeks with me Patient has an appointment oncologist, Dr Bunn (I discussed her case with him).
--- NOTE | 2025-02-28 13:19 | WC ---
PHOTO 02/27/25 LEFT MED LEG
== END 2025-03-01 23:59 | disposition home or self-care (01) ==
LOC: WC 13:15
PROVIDERS: PCP Family Medicine; Referring Provider Surgery Plastic and Reconstructive Surgery; Visit Provider Surgery Plastic and Reconstructive Surgery
DX: C43.72 Malignant melanoma of left lower limb, including hip (principal)
CPT/HCPCS: 99213; G0463

== ENCOUNTER 2025-03-24 09:45 | Outpatient (RCR) | payer MEDICARE, SELFPAY ==
[2025-03-02 00:44] VITALS: BP 227/85; PULSE 73; RESP 16; TEMP 35.8; BMI 24.0
--- NOTE | 2025-03-10 08:53 | PCM.WC.PN ---
History of Present Illness Date of Service: 03/10/25 Chief Complaint: Operative Information Date of Procedure: 02/12/25 Pre-Operative Diagnosis: Left anterior/medial leg melanoma (T3b, Breslow depth is 2.5 mm, ulceration was present (at least 4 mm), Nathan level IV, at least 2 mitoses per square millimeter, no lymphatic or vascular invasion ) Post-Operative Diagnosis: Same Surgery/Procedure Performed: 1) [place] lymph node biopsy, left groin, for left leg melanoma (CPT: 18417) 2) Wide local excision, left anterior/medial leg melanoma (excision of scar from biopsy with 2 cm margins), 7.3 x 5 cm (CPT: 88787) 3) Placement of dermal substitute, left leg wound, 7.3 x 5 cm (TheraSkin cadaver Allograft), (CTP 58361, 70042) Indications: Namita Linton is a delightful 84-year-old female with a 2.5 mm Breslow depth left anterior/medial leg melanoma that was excised for biopsy at an outpatient clinic. 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 There were no extra margins taken. She presents today for sentinel lymph node as well as wide local excision. Before the operation she went to nuclear medicine where Lymphoseek tracer was injected and the sentinel lymph node localized to the left groin. She presents today for sentinel lymph node as well as wide local excision with 2 cm margins around the scar from the previous melanoma excisional biopsy. She understands the risks, benefits, and alternatives of the procedure, including infection, bleeding, failure to obtain the desired result including the melanoma, fluid collections, damage to the lymphatic system with lymphedema, as well as need for repeat operations. She agreed to proceed with surgery. Operative Information Date of Procedure: 02/19/25 Pre-Operative Diagnosis: 1) Wound s/p excision of a Left anterior/medial leg melanoma (T3b, Breslow depth is 2.5 mm, ulceration was present (at least 4 mm), Nathan level IV, at least 2 mitoses per square millimeter, no lymphatic or vascular invasion ) Post-Operative Diagnosis: Same Surgery/Procedure Performed: 1) Surgical preparation of wound, 7.3 x 5 cm (CPT: 79278) 2) Split-thickness skin graft, left thigh to left leg, 7.3 x 5 cm (CPT: 52652) Indications: Patient is a delightful 84-year-old female with a left medial leg wound with clear surgical margins following wide local excision (2 cm margins) for a melanoma with a Breslow depth of 2.5. Patient understands the risks, benefits, and alternatives to skin grafting, and wants to proceed. Subjective Subjective Current encounter, 10 March 2025: Patient is almost 3 weeks out from split-thickness skin graft to the left medial leg after margins were determined to be clear from wide local excision of the melanoma. Discussed with pathology and the sentinel lymph node also cleared melanoma. Patient is meeting with hematology oncology (Dr. Bunn) as we made this referral. Objective Data Objective Data Vital Signs: Vital Signs Temp Pulse Resp BP 96.4 F L 73 16 227/85 H 03/02/25 00:44 03/02/25 00:44 03/02/25 00:44 03/02/25 00:44 Weight: 123 lb Body Mass Index (BMI) 24.0 Charges/Coding Procedures Integumentary 111xxx-113xx: 98981 Global Visit Physical Exam Narrative LLE examined Near 100% take of the STSG No signs of infection Left groin incision healed, no fluid collections. No swelling in the left lower extremity Left thigh donor site healthy. Debridement Note Debridement Note No debridement was completed: No debridement was completed today Assessment/Plan Assessment/Plan (1) Melanoma of lower leg: CODE(S): C43.70 - Malignant melanoma of unspecified lower limb, including hip QUALIFIERS: Laterality: left Qualified Code(s): C43.72 - Malignant melanoma of left lower limb, including hip PLAN: T3b Breslow depth 2.5 mm Excised 12 Feb 2025 with 2 cm margins and SLNB (left groin) Margins from wide-local excision clear [place] lymph node clear Would be stage II (estimated, will defer to hematology oncology) PLAN: Plan Near 100% take of the skin graft Xeroform twice daily to leg skin graft. Aquaphor to donor site. O.K. to shower and get everything wet Patient has an appointment oncologist, Dr Bunn (I discussed her case with him). FU in 2 weeks
[2025-03-10 09:45] VITALS: BP 208/78; PULSE 67; RESP 16; TEMP 35.9; BMI 24.0
[2025-03-24 10:11] VITALS: BP 205/93; PULSE 65; RESP 16; TEMP 36.3; BMI 24.0
--- NOTE | 2025-03-24 13:26 | PN.PCM_ITS ---
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, ulceration was present (at least 4 mm), Nathan level IV, at least 2 mitoses per square millimeter, no lymphatic or vascular invasion ) Post-Operative Diagnosis: Same Surgery/Procedure Performed: 1) Lawrence lymph node biopsy, left groin, for left leg melanoma (CPT: 14370) 2) Wide local excision, left anterior/medial leg melanoma (excision of scar from biopsy with 2 cm margins), 7.3 x 5 cm (CPT: 49211) 3) Placement of dermal substitute, left leg wound, 7.3 x 5 cm (TheraSkin cadaver Allograft), (CTP 29515, 73987) Indications: Namita Linton is a delightful 84-year-old female with a 2.5 mm Breslow depth left anterior/medial leg melanoma that was excised for biopsy at an outpatient clinic. 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 There were no extra margins taken. She presents today for sentinel lymph node as well as wide local excision. Before the operation she went to nuclear medicine where Lymphoseek tracer was injected and the sentinel lymph node localized to the left groin. She presents today for sentinel lymph node as well as wide local excision with 2 cm margins around the scar from the previous melanoma excisional biopsy. She understands the risks, benefits, and alternatives of the procedure, including infection, bleeding, failure to obtain the desired result including the melanoma, fluid collections, damage to the lymphatic system with lymphedema, as well as need for repeat operations. She agreed to proceed with surgery. 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 Patient understands the risks, benefits, and alternatives to skin grafting, and wants to proceed. Subjective Subjective 10 March 2025: Patient is almost 3 weeks out from split-thickness skin graft to the left medial leg after margins were determined to be clear from wide local excision of the melanoma. Discussed with pathology and the sentinel lymph node also cleared melanoma. Patient is meeting with hematology oncology (Dr. Bunn) as we made this referral. CURRENT ENCOUNTER, 24 March 2025: The patient is an 85-year-old female presenting with a follow-up evaluation of the skin graft on the left leg post-melanoma surgery. The melanoma was previously excised, and a skin graft was placed at the site on the left leg. The sentinel lymph node biopsy was negative, indicating no metastasis. The skin graft has shown significant healing, with nearly 100% take and no signs of melanoma recurrence. The patient has been using Xeroform dressings, which are now being transitioned to Aquaphor for continued care. The patient has a history of a similar condition approximately 12 years ago, requiring a cast for six weeks. Attestation: Documentation on this patient encounter was supported using ambient scribe technology/ voice AI technology. The patient consented to recording for the purpose of documenting the encounter. Provider reviewed content of the generated note prior to signature. Objective Data Objective Data Vital Signs: Vital Signs Temp Pulse Resp BP 97.4 F L 65 16 205/93 H 03/24/25 10:11 03/24/25 10:11 03/24/25 10:11 03/24/25 10:11 Weight: 123 lb Body Mass Index (BMI) 24.0 Charges/Coding Procedures Integumentary 111xxx-113xx: 95870 Global Visit Physical Exam Narrative - Skin: Nearly 100% take of the skin graft on the left leg, no signs of melanoma recurrence - Musculoskeletal: All muscles covered with new skin, no critical exposure Debridement Note Debridement Note No debridement was completed: No debridement was completed today Post-Debridement Measurements and Additional Note: Post-Debridement Measurements/Treatment WC - Nurse 1 - General Ulcer Assessment Start: 03/10/25 09:42 Freq: Status: Active Protocol: WC.LOWEXT Activity Type Activity Date Activity User E-sign Co-sign Detail Recorded Client Recorded Date Recorded By Document 03/10/25 09:45 DL [id number] 03/10/25 09:54 DL Document 03/24/25 10:11 DL [id number] 03/24/25 10:20 DL 03/10/25 03/24/25 09:45 10:11 - Today's Visit Information Type of service Follow-up Visit Follow-up Visit (Physician/WEBSITE PROGRAMMER (Physician/WEBSITE PROGRAMMER ) ) Arrival Mode Ambulatory Ambulatory Transfer Assistance None None Patient Identification Verified (Name & Yes Yes ) Patient Requires Transmission-Based No No Precautions Height and Weight Body Mass Index (BMI) 24.0 24.0 BMI Classification Normal Normal Vital Signs Temperature (97.8 F-99.1 F) 96.6 F L 97.4 F L Temperature Source Temporal Temporal Pulse Rate (60-100) 67 65 Pulse Location Monitor Respiratory Rate (12-18) 16 16 Respiratory rate source Observation Observation Blood Pressure (90/60-120/80) 208/78 H 205/93 H Blood Pressure Mean (mm Hg) 121 130 Source Monitor Monitor History Since Last Visit- (Skip if this is Patient's initial visit) Have you changed medications since your No No last visit? Any new allergies or adverse reactions No No Had a fall/change in ADL's that may No No increase risk of falls Signs or symptoms of abuse and/or No No neglect since last visit Have you been in the hospital since your No No last visit? Has dressing in place as prescribed Yes No Has compression in place as prescribed Yes N/A Has offloadiing in place as prescribed Yes N/A Experienced any changes in pain level or No No management Pain Scale: 0-10 Numeric Is Patient Pain Free? Yes Yes - Nurse 1 - General Ulcer Measurement Start: 03/10/25 09:42 Freq: Status: Active Protocol: Activity Type Activity Date Activity User E-sign Co-sign Detail Recorded Client Recorded Date Recorded By Document 03/10/25 09:45 DL [id number] 03/10/25 09:54 DL Document 03/24/25 10:11 DL [id number] 03/24/25 10:20 DL 03/10/25 03/24/25 09:45 10:11 Wound Center Nurse 1 #2 Left Thigh - skin graft site -Current Size (cm) - Length 0.1 0.1 -Current Size (cm) - Width 0.1 0.1 -Current Size (cm) - Depth 0.1 0.1 -Total Square Cm 0.01 0.01 -Exudate Amt None Present None Present -Wound Margin Distinct, Distinct, Outline Outline Attached Attached -Granulation Amt Large (67-100%) Large (67-100%) -Granulation Quality [place] -Necrosis Amt Small (1-33%) None Present (0 %) -Structure Exposed N/A N/A -Texture (Arleen-wound Skin Appearance) Scarring Scarring -Moisture (Arleen-wound Skin Appearance) No Abnormality No Abnormality -Color (Arleen-wound Skin Appearance) No Abnormality No Abnormality -Temperature (Arleen-wound Skin No Abnormality No Abnormality Appearance) (Pt Warm) (Pt Warm) -Tenderness on Palpation (Arleen-wound No Skin Appearance) -Ulcer Cleansing Soap and Water Soap and Water -Foul Odor after Cleansing No No Left Medial Leg, PostOP -Current Size (cm) - Length 0.1 6.2 -Current Size (cm) - Width 0.1 1.1 -Current Size (cm) - Depth 0.1 0.1 -Total Square Cm 0.01 6.82 -Photo Taken Yes -Exudate Amt Small Medium -Exudate Type Serosanguineous Serosanguineous -Wound Margin Distinct, Distinct, Outline Outline Attached Attached -Granulation Amt Medium (34-66%) Medium (34-66%) -Granulation Quality [place] -Necrosis Amt Medium (34-66%) Medium (34-66%) -Necrotic Tissue Type Adherent Slough Adherent Slough -Structure Exposed N/A N/A -Texture (Arleen-wound Skin Appearance) Scarring Scarring -Moisture (Arleen-wound Skin Appearance) No Abnormality No Abnormality -Color (Arleen-wound Skin Appearance) No Abnormality No Abnormality -Temperature (Arleen-wound Skin No Abnormality No Abnormality Appearance) (Pt Warm) (Pt Warm) -Tenderness on Palpation (Arleen-wound No Skin Appearance) -Ulcer Cleansing Soap and Water Soap and Water -Foul Odor after Cleansing No No -Anesthetic Used 4% Lidocaine 5% Lidocaine Solution Gel WC - Nurse 2 - General Ulcer CM Notes Start: 03/10/25 09:42 Freq: Status: Active Protocol: Activity Type Activity Date Activity User E-sign Co-sign Detail Recorded Client Recorded Date Recorded By Document 03/10/25 10:13 DS [id number] 03/10/25 10:19 DS Document 03/24/25 10:32 DS [id number] 03/24/25 10:36 DS 03/10/25 03/24/25 10:13 10:32 Wound Center Nurse 2 #2 Left Thigh - skin graft site -Time 10:13 10:32 -Correct Patient Yes Yes -Correct Side, Site, Position Yes Yes -Procedure Performed No No -Wound/Ulcer Outcome Not Healed Left Medial Leg, PostOP -Time 10:13 10:33 -Correct Patient Yes Yes -Correct Side, Site, Position Yes Yes -Procedure Performed No No -Post Debridement (cm) - Length 7.0 -Post Debridement (cm) - Width 5.0 -Post Debridement (cm) - Depth 3.0 -Total Square (Post) (cm) 35.00 -Area of Debridement (cm) - Length 7.0 -Area of Debridement (cm) - Width 5.0 -Total Square (Area) (cm) 35.00 -Tunneling No No -Undermining/Tunneling No No -Circular Undermining No No -Wound/Ulcer Outcome Not Healed Not Healed -Ulcer Cleansing Rinsed/ Irrigated with Saline -Foul Odor after Cleansing No No -Bioengineered Tissue No -Bleeding Controlled with Pressure -Treatment Response Procedure Tolerated Well Pain Scale: 0-10 Numeric Is Patient Pain Free? Yes Yes WC - Nurse 3 - General Ulcer D/C NN Start: 03/10/25 09:42 Freq: Status: Active Protocol: Activity Type Activity Date Activity User E-sign Co-sign Detail Recorded Client Recorded Date Recorded By Document 03/10/25 10:35 DL [id number] 03/10/25 10:38 DL Document 03/24/25 10:41 DS [id number] 03/24/25 10:46 DS 03/10/25 03/24/25 10:35 10:41 Wound Care Center Nurse 3 #2 Left Thigh - skin graft site -Ulcer Cleansing Rinsed/ Irrigated with Saline -Foul Odor after Cleansing No -Primary Dressing Applied NonAdherent Contact Layer -Other Dressing xerofrom/ ABD lotion -Primary Dressing Covered/Secured with Secured with Tape -Wound Comment(s) Pt will start Aquapor at home . Left Medial Leg, PostOP -Ulcer Cleansing Rinsed/ Irrigated with Saline -Foul Odor after Cleansing No -Other Dressing xeroform/ABD lotion -Primary Dressing Covered/Secured with Dry Gauze & Roll Gauze, Secured with Tape -Other Covering TUCKER Treatment Response Procedure Tolerated Well Pain Scale: 0-10 Numeric Is Patient Pain Free? Yes Yes WC - Visit Discharge Discharge Condition Stable Stable Ambulatory Status Ambulatory, Ambulatory Steady Transportation Private Auto Private Auto Assessment/Plan Assessment/Plan (1) Melanoma of lower leg: CODE(S): C43.70 - Malignant melanoma of unspecified lower limb, including hip QUALIFIERS: Laterality: left Qualified Code(s): C43.72 - Malignant melanoma of left lower limb, including hip PLAN: T3b Breslow depth 2.5 mm Excised 12 Feb 2025 with 2 cm margins and SLNB (left groin) Margins from wide-local excision clear Lawrence lymph node clear Would be stage II (estimated, will defer to hematology oncology) The patient has undergone successful excision of melanoma on the left leg, with a skin graft placed at the site. The sentinel lymph node biopsy was negative, indicating no metastatic spread. The skin graft has healed well, with nearly 100% take and no signs of recurrence. The patient is advised to transition from Xeroform dressings to Aquaphor for continued wound care. A follow-up with an oncologist is recommended to discuss future monitoring and management strategies. PLAN: Plan - Continue using Aquaphor on the skin graft site as directed. - Schedule a follow-up appointment with an oncologist for further evaluation and monitoring. - Protect the graft site with gauze if it remains tender.
== END 2025-03-31 23:59 | disposition home or self-care (01) ==
LOC: WC 09:45
PROVIDERS: PCP Family Medicine; Referring Provider Surgery Plastic and Reconstructive Surgery; Visit Provider Surgery Plastic and Reconstructive Surgery
DX: Z98.890 Other specified postprocedural states (principal); Z79.890 Hormone replacement therapy; Z79.899 Other long term (current) drug therapy; Z85.820 Personal history of malignant melanoma of skin
CPT/HCPCS: 99213; G0463